=== PATIENT | female | born 1980 | race Caucasian/White ===

== ENCOUNTER 2017-07-17 07:06 | Emergency (ER) | payer SELFPAY ==
[2017-07-17] MEDS ORDERED: cefTRIAXone 1 GM Vial IM ONE (07:55)
[2017-07-17] MEDS ORDERED: Acetaminophen/oxyCODONE 325-5 MG Tab PO ONE (07:55)
--- NOTE | 2017-07-17 08:08 | EDM.PDOC ---
ED HPI GENERAL MEDICAL PROBLEM - General Chief Complaint: ENT Problem Stated Complaint: INFECTION IN TOOTH Time Seen by Provider: 07/17/17 08:08 Source of Information: Reports: Patient History Limitations: Reports: No Limitations - History of Present Illness INITIAL COMMENTS - FREE TEXT/NARRATIVE: PATIENT IS A 37-YEAR-OLD FEMALE WHO PRESENTS TO THE EMERGENCY DEPARTMENT THIS MORNING WITH A COMPLAINT OF LEFT SIDED DENTAL PAIN. PATIENT STATES THAT SHE HAS CHRONIC ISSUES WITH HER TEETH, AND YESTERDAY PAIN BEGAN TO WORSEN ON LEFT UPPER JAW. WOKE UP THIS MORNING AND NOTICED SOME SWELLING AND DECIDED TO PRESENT TO THE EMERGENCY DEPARTMENT. PATIENT DENIES FEVER, DIFFICULTY SWALLOWING, CHEST PAIN, SHORTNESS OF BREATH, OR ANY SPECIFIC TRAUMA. Onset: Gradual Onset Date: 07/16/17 Duration: Day(s): Location: Reports: Face Quality: Reports: Sharp Severity: Moderate Improves with: Reports: None Worsens with: Reports: Eating Associated Symptoms: Reports: No Other Symptoms. Denies: Fever/Chills Left Tooth/Teeth Pain Score (Numeric/FACES): 10 - Related Data Allergies Allergy/AdvReac Type Severity Reaction Status Date / Time No Known Drug Allergies Allergy Cannot Verified 07/17/17 07:18 Remember Home Meds: Home Meds Amoxicillin 500 mg PO TID #30 capsule 07/17/17 [Rx] ED ROS ENT - Review of Systems Review Of Systems: ROS reveals no pertinent complaints other than HPI. Constitutional: Reports: No Symptoms. Denies: Fever HEENT: Reports: Dental Pain. Denies: Throat Pain, Throat Swelling Respiratory: Reports: No Symptoms Cardiovascular: Reports: No Symptoms Endocrine: Reports: No Symptoms GI/Abdominal: Reports: No Symptoms : Reports: No Symptoms Musculoskeletal: Reports: No Symptoms Skin: Reports: No Symptoms Neurological: Reports: No Symptoms Psychiatric: Reports: No Symptoms Hematologic/Lymphatic: Reports: No Symptoms Immunologic: Reports: No Symptoms ED EXAM, ENT - Physical Exam Exam: See Below Exam Limited By: No Limitations General Appearance: Alert, WD/WN, No Apparent Distress Nose: Normal Inspection, Normal Mucousa, No Blood Mouth/Throat: Normal Oropharynx, Dental Pain, Dental Tenderness, Other (MILD EDEMA LEFT CHEEK). No: Normal Teeth, Dental Abcess, Dental Trauma, Drooling, Dry Mucous Membrane, Gum Swelling, Lip Swelling, Muffled Voice, Oral Ulcers, Peritonsillar Mass, Pharyngeal Erythema, Throat Pain, Tongue Swelling, Tonsillar Erythema, Tonsillar Exudates, Tonsillar Swelling, Trismus, Uvular Deviation, Uvular Edema Head: Atraumatic, Normocephalic Neck: Normal Inspection, Supple, Non-Tender. No: Lymphadenopathy (L), Lymphadenopathy (R) Respiratory/Chest: No Respiratory Distress, Lungs Clear Neurological: Alert, Oriented, Normal Cognition Psychiatric: Normal Affect, Normal Mood Skin: Warm, Dry, Intact, Normal Color, No Rash Lymphatic: No Adenopathy Course - Vital Signs Last Recorded V/S: Last Vital Signs Temp 96.1 F 07/17/17 07:15 Pulse 66 07/17/17 07:15 Resp 20 07/17/17 07:15 BP 111/65 07/17/17 07:15 Pulse Ox 99 07/17/17 07:15 - Orders/Labs/Meds Meds: Medications Discontinued Medications Generic Name Dose Route Start Last Admin Trade Name Freq PRN Reason Stop Dose Admin Ceftriaxone Sodium 1 gm 07/17/17 07:55 Rocephin IM 07/17/17 07:56 ONETIME ONE Oxycodone/Acetaminophen 1 tab 07/17/17 07:55 Percocet 325-5 Mg PO 07/17/17 07:56 ONETIME ONE - Re-Assessments/Exams Free Text/Narrative Re-Assessment/Exam: 07/17/17 08:17 PATIENT AFEBRILE, NONTOXIC APPEARING, VITAL SIGNS STABLE, TAKING BY MOUTH FLUIDS WITHOUT DIFFICULTY. 1 G IM ROCEPHIN GIVEN. PATIENT WILL BE STARTED ON AMOXICILLIN AND RETURN TO THE EMERGENCY DEPARTMENT TOMORROW FOR RECHECK. SHE WILL SCHEDULE DENTAL APPOINTMENT IGOR Departure - Departure Time of Disposition: 08:18 Disposition: Home, Self-Care 01 Condition: Good Clinical Impression: Dental caries, Toothache - Discharge Information Instructions: Preventive Dental Care, Adult Referrals: PCP,None [Primary Care Provider] - Additional Instructions: RETURN TO EMERGENCY DEPARTMENT WITHIN 24 HOURS FOR RECHECK. SCHEDULE APPOINTMENT WITH DENTIST SOON POSSIBLE - Assessment/Plan Assessment:: DENTAL CARIES, TOOTHACHE Plan: RETURN TO THE ER TOMORROW FOR RECHECK. FOLLOW-UP WITH DENTIST
== END 2017-07-17 08:37 | disposition home or self-care (01) ==
LOC: KA.ED 07:06
DX: K04.7 Periapical abscess without sinus (principal)
CPT/HCPCS: 96372; 99282; A9270; J0696